=== PATIENT | female | born 1955 | race Caucasian/White ===

== ENCOUNTER 2022-09-14 11:28 | Day surgery (SDC) | payer OTHER ==
[2022-09-10 15:53] LABS: Hematocrit 42.3 % (36.0-45.0); RBC Red Blood Cell Count 4.65 M/uL (3.86-4.86)
[2022-09-10 15:54] LABS: Lymphocytes % 31.5 % (15.3-44.8)
--- NOTE | 2022-09-10 15:58 | RAD REPORT ---
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 COMPARISON: No comparisons FINDINGS: The lungs are clear. The heart is mildly enlarged. No displaced fractures.
[2022-09-10 16:04] LABS: Protime INR 1.01
[2022-09-10 16:09] LABS: Potassium 3.8 mmol/L (3.5-5.1)
--- NOTE | 2022-09-11 17:33 | EKG ---
Test Date: 2022-09-10 Test Time: 15:36:30 Time Recorder: ZACKERY MEASUREMENT RESULTS: Intervals: Rate: 61 PA: 150 QRSD: 90 QT: 430 QTc: 432 [place]: P: 66 PA: 150 QRS: 28 T: 70 INTERPRETIVE STATEMENTS: Normal sinus rhythm Low voltage QRS Nonspecific T wave abnormality Abnormal ECG No previous ECG available for comparison Electronically Signed On 09-11-22 17:30:53 CANAL SUPERINTENDENT by Salvatore Jean
[~2022-09-14 11:28] MED LIST: NA CHLORIDE 0.9% 500 ML ONE
[2022-09-14] MEDS ORDERED: LIDOCAINE 1% 20 ML MDV ONE (12:28)
[2022-09-14] MEDS ORDERED: HEPA 1000U/500MLS 2,000 UNIT/1,000 ML BAG IV ONE (12:28)
[2022-09-14] MEDS ORDERED: HEPARIN 10,000 UNIT/10 ML VIAL IV ONE (12:29)
[2022-09-14] MEDS ORDERED: HEPARIN 5000 UNIT/ML 1 ML VIAL ONE (12:29)
[2022-09-14] MEDS ORDERED: ATROPINE SULF 1 MG/10 ML SYR IV ONE (12:29)
[2022-09-14] MEDS ORDERED: MIDAZOLAM HCL 2 MG/2 ML INJ ONE (12:29)
[2022-09-14] MEDS ORDERED: FENTANYL CITR 100 MCG/2 ML ONE (12:29)
[2022-09-14] MEDS ORDERED: VERAPAMIL HCL 10 MG/4 ML VIAL IV ONE (12:29)
[2022-09-14] MEDS ORDERED: NITROGLYCERIN 100 MCG/ML SYR (for cath lab use only) IV ONE (12:29)
[2022-09-14] MEDS ORDERED: NITROGLYCERIN/D5W 25 MG/250 ML BTL IV ONE (12:30)
[2022-09-14] MEDS ORDERED: CLOPIDOGREL 75 MG TABLET ONE (12:34)
[2022-09-14] MEDS ORDERED: ASPIRIN 325 MG TAB ONE (12:36)
[2022-09-14] MEDS ORDERED: TICAGRELOR 90 MG TABLET PO ONE (12:36)
[2022-09-14] MEDS ORDERED: ONDANSETRON 4 MG/2 ML VIAL ONE (12:39)
[2022-09-14] MEDS ORDERED: REGADENOSON 0.4 MG/5 ML SYR IV ONE (13:11)
[2022-09-14 15:54] VITALS: O2SAT 97
[2022-09-14 15:55] VITALS: BP 114/70
--- NOTE | 2022-09-14 18:06 | OP ---
Date of Procedure: 09/14/2022 Surgeon: TRUPTI ACOSTA Procedures Performed: 1.Selective coronary angiogram. 2.FFR of ostial LAD moderate stenosis, which was insignificant value of 0.94. 3.Left heart catheterization. Indication: 1.V-tach. 2.Chest pain. Access: Right radial artery 6-Iraqi closed with TR band. Complications: None. Bleeding: Less than 10 mL. Description Of Procedure: After risks, benefits, alternatives were explained, the patient agreed to procedure and signed informed consent. The patient was brought into the cardiac catheterization [facility], prepped and draped in the usual sterile fashion. Then, I accessed right radial artery using pediatric micropuncture kit and placed a 6-Iraqi Slender sheath. The patient was given fentanyl and Versed to achieve adequate moderate sedation. Then, I took a 5-Iraqi Wishon 4.0 catheter into the a ortic root over a J-wire and then engaged left main and the right coronary artery, took standard view s and then the catheter was pushed over the wire into the LV. LVEDP was measured and pullback did no t record any gradient. Then, we gave systemic heparin to assure ACT level above 250 and then took an FFR wire into the aortic root and pressures were equalized and then engaged the left main and sent t he wire into the LAD across the area of stenosis. FFR was done using Lexiscan. The value was 0.94. Pulling the wire back, there was no drift. I then removed the catheter and sheath and placed TR ban d with good hemostasis. Findings: 1.Left main; large and normal. 2.LAD is ostial 40% stenosis with negative FFR value of 0.94, then luminal irregularities and normal diagonal branches. 3.Left circumflex; moderate size and has mid 30% stenosis. 4.RCA; dominant, circulation and normal. 5.LVEDP is normal between 10 and 12 mmHg. Conclusion: 1.Mild nonobstructive coronary artery disease. 2.Normal LVEDP. Recommendation: Medical management. SR/MODL Voice ID: [id number] Report ID: [id number]
== END 2022-09-14 16:09 | disposition home or self-care (01) ==
LOC: CCL 11:28
PROVIDERS: ATTEND Internal Medicine
DX: I25.10 Atherosclerotic heart disease of native coronary artery without angina pectoris (principal); I47.29 Other ventricular tachycardia; I10 Essential (primary) hypertension; E78.5 Hyperlipidemia, unspecified; Z88.2 Allergy status to sulfonamides; Z82.49 Family history of ischemic heart disease and other diseases of the circulatory system
CPT/HCPCS: 93005; 85025; 80048; 36415; 85610; 85730; 71046; 93458; 93571; C1893; Q9966; J1644 ×2; J2250; J3010; J2785; J7040; J2405; C1769; J0461; J2001